=== PATIENT | male | born 1930 | race Caucasian/White ===

== ENCOUNTER 2016-07-23 11:49 | Emergency (ER) | payer MEDICARE ==
[~2016-07-23 11:49] MED LIST: Iopamidol 370 76% 100 ML VIAL ONE; Sodium Chloride 0.9% 100 ML BAG ONE
--- NOTE | 2016-07-23 13:16 | RAD ---
PORTABLE CHEST 1 VIEW: DATE: 07/23/16. TIME: 12:50 p.m. HISTORY: Fall. Chest pain. FINDINGS: Comparison is made with the exam of 12/19/14. The heart size is mildly enlarged. The aorta is tortuous. There is mild Atelectatic change of the right lung base. Small pleural effusions may be present. No pneumothoraces are seen. There is no evidence of kyung pulmonary edema. POS: [facility]
[2016-07-23 13:24] LABS: #Basophils 0.1 thou/uL (0.0-0.2); #Monocytes 1.5 thou/uL (0.11-0.59); %Basophils 0.5 % (0.0-1.0); %Eosinophils 0.1 % (0.0-10.0); %Lymphocytes 6.8 % (21.0-51.0); %Monocytes 10.3 % (0.0-10.0); %Neutrophils 82.4 % (42.0-75.0); Hemoglobin 14.9 g/dL (14.0-18.0); Mean Corpuscular HGB CONC 33.6 g/dL (32.0-36.0); Mean Corpuscular Hemoglobin 33.9 pg (27.0-31.0); Mean Corpuscular Volume 100.8 fl (80.0-94.0); Mean Platelet Volume 6.2 fL (7.4-10.4); Platelet Count 212 thou/uL (130-400); RBC Distribution Width 11.7 % (11.5-14.5); Red Blood Cell (RBC) Count 4.41 mill/uL (4.70-6.10); White Blood Cell (WBC) Count 14.6 thou/uL (4.8-10.8)
[2016-07-23 13:36] LABS: ALT (SGPT) 47 U/L (8-55); AST (SGOT) 37 U/L (5-34); Albumin 3.3 g/dL (3.4-4.8); Alkaline Phosphatase 125 U/L (40-150); Anion Gap 16 mmol/L (10-20); BUN (Urea Nitrogen) 8 mg/dL (8.4-25.7); Bilirubin, Total 1.3 mg/dL (0.2-1.2); Calc. Creatinine Clearance 0 mL/min (70-130); Calcium 9.3 mg/dL (7.8-10.44); Carbon Dioxide 25 mmol/L (23-31); Chloride 101 mmol/L (98-107); Estimated GFR-MDRD Greater than 90; Globulin 3.3 g/dL (2.4-3.5); Glucose 132 mg/dL (83-110); Potassium 3.4 mmol/L (3.5-5.1); Protein, Total 6.6 g/dL (5.8-8.1); Sodium 139 mmol/L (136-145)
--- NOTE | 2016-07-23 13:44 | RAD ---
TWO VIEWS OF THE RIGHT THUMB: DATE: 07/23/16. COMPARISON: None. HISTORY: Fell 2 weeks ago, pain and swelling. FINDINGS: There is severe degenerative change involving the 1st interphalangeal joint and the 1st metacarpal p halangeal joint. Incomplete assessment of the hand indicates prominent degenerative change at the 3 rd metacarpal phalangeal joint as well as the 2nd proximal and distal interphalangeal joints. There is heterotopic bone adjacent to the 1st interphalangeal joint and there is marked joint space narrowing and osteophyte formation in this region. There is no displaced fracture or evidence of dislocation seen. There is chondrocalcinosis in the r egion of the triangular fibrocartilage complex. IMPRESSION: Severe degenerative changes. No displaced fracture or evidence of dislocation is seen. POS: [facility]
[2016-07-23 13:50] LABS: Blood, Urine Negative (Negative); Clarity Clear (Clear); Glucose, Urine (Dipstick) 100 mg/dL (Negative); Leukocyte Negative (Negative); Nitrite Negative (Negative); Protein, Urine (Dipstick) 100 mg/dL (Neg-Trace); Specific Gravity, Urine 1.025 (1.005-1.030)
[2016-07-23 13:53] LABS: Bilirubin Negative (Negative); Icto Negative (Negative)
[2016-07-23 13:56] LABS: Bacteria/HPF Rare-Few HPF (None Seen); RBC/HPF 0-3 HPF (0-3); WBC/HPF 0-3 HPF (0-3)
[2016-07-23 15:47] LABS: CRP (Inflammatory) 18.7 mg/dL (= or < 0.5)
[2016-07-23] MEDS ORDERED: ceFAZolin Sodium 1 GM VIAL ONE (17:02)
--- NOTE | 2016-07-23 18:14 | CT ---
CT OF THE ABDOMEN AND PELVIS WITH IV CONTRAST: Date: 07/23/16 INDICATION: Right upper quadrant abdominal pain. COMPARISON: None. FINDINGS: Motion artifact slightly limits image detail of the upper abdomen. FINDINGS: There is a tiny right pleural effusion with right basilar atelectasis. There is a moderate size hiat al hernia. No focal hepatic lesion is evident. Small calcifications are seen along the capsule of the spleen which may reflect sequelae of prior tr auma. The pancreas and adrenal glands are unremarkable. There is a small cyst within the right mid kidney and lower pole of the left kidney. The small bowel is normal caliber. There is a mild amount of retained stool within the right hemicol on. The bladder is decompressed. The rectum and perirectal soft tissues are unremarkable. No enlarge d lymph nodes or free fluid is evident. There is diffuse osteopenia. There is scattered degenerative and osteoarthritic change. There is pos tsurgical change of right hemilaminectomy at L4-5. There is degenerative dextroscoliosis of the lumbar spine. IMPRESSION: 1. Small right pleural effusion with right basilar atelectasis. 2. Small calcifications seen along the capsule of the spleen may reflect sequelae of prior splenic subcapsular hematoma. No focal splenic lesion is evident. 3. Moderate hiatal hernia. 4. Small renal cyst. 5. Other chronic findings as above. POS: [facility]
== END 2016-07-23 17:30 | disposition home or self-care (01) ==
LOC: MADERS 11:49
DX: L03.011 Cellulitis of right finger (principal); J44.9 Chronic obstructive pulmonary disease, unspecified; Z79.899 Other long term (current) drug therapy; W18.30XA Fall on same level, unspecified, initial encounter
CPT/HCPCS: 71010; 74177; 80053; 81003; 81015; 82150; 83690; 83880; 85025; 86140; 96365; J0690; J7050

== ENCOUNTER 2017-01-05 20:06 | Emergency (ER) | payer MEDICARE ==
--- NOTE | 2017-01-05 21:44 | RAD ---
RIGHT KNEE TWO VIEWS: 01/05/17 HISTORY: Injury, right knee pain. FINDINGS/IMPRESSION: There are postop changes of total knee arthroplasty in good position and alignment. No acute fractur e or dislocation is seen. No periprosthetic lucency is identified to suggest loosening. POS: [facility]
--- NOTE | 2017-01-05 22:06 | RAD ---
AP PELVIS: RIGHT HIP TWO VIEWS: 01/05/17 HISTORY: Injury, right hip pain. FINDINGS/IMPRESSION: There is a comminuted intertrochanteric fracture involving the right femur. There is medial displace ment of the lesser trochanter. POS: [facility]
== END 2017-01-05 22:00 | disposition short-term general hospital (02) ==
LOC: MADERS 20:06
DX: S72.141A Displaced intertrochanteric fracture of right femur, initial encounter for closed fracture (principal); S83.91XA Sprain of unspecified site of right knee, initial encounter; J44.9 Chronic obstructive pulmonary disease, unspecified; M19.90 Unspecified osteoarthritis, unspecified site; W01.0XXA Fall on same level from slipping, tripping and stumbling without subsequent striking against object, initial encounter
CPT/HCPCS: 72170

== ENCOUNTER 2017-01-29 17:52 | Inpatient (IN) | payer MEDICARE ==
[2017-01-29] MEDS ORDERED: Artificial Tear Sol 15 ML BOT EA EYE PRN (21:17)
[2017-01-29] MEDS ORDERED: Famotidine 20 MG TAB PER TUBE SCH (21:30)
[2017-01-30] MEDS: Acetaminophen 325 MG TAB PER TUBE PRN (05:26)
[2017-01-30] MEDS ORDERED: Lantiseptic Ointment 130 GM JAR TOP PRN (06:47)
[2017-01-30] MEDS: Vit A,C & E/Lutein/Minerals Tablet PO SCH (08:16)
[2017-01-30] MEDS: Aspirin 325 MG TAB PER TUBE SCH (08:16)
[2017-01-30] MEDS: Famotidine 20 MG TAB PER TUBE SCH ×2 (08:16→20:33)
[2017-01-30] MEDS: Amoxicillin/Potassium Clav 875 MG TAB PER TUBE SCH ×2 (08:16→20:33)
[2017-01-30] MEDS: Cyanocobalamin (Vitamin B-12) 1,000 MCG TAB PER TUBE SCH (08:16)
[2017-01-30] MEDS: Folic Acid 1 MG TAB PER TUBE SCH (08:16)
[2017-01-30] MEDS: Multivitamin W/ Minerals 1 TAB PER TUBE SCH (08:16)
[2017-01-30] MEDS: Simethicone Chewable 80 MG TAB PO SCH (08:16)
[2017-01-30] MEDS ORDERED: Cyanocobalamin (Vitamin B-12) 1,000 MCG TAB PO SCH (09:00)
--- NOTE | 2017-01-30 16:32 | HP ---
DATE OF ADMISSION: 01/29/2017 ATTENDING: Dr. Corral. PCP: Dr. Nathalie King of [place]. CONSULTANTS: Cardiology, Dr. Christopher Clemons and Dr. Busch; Gastroenterology, Dr. Wes Quijano. REASON FOR ADMISSION: Skilled rehabilitation in [place] swing bed. HISTORY OF PRESENT ILLNESS/HOSPITAL COURSE: Mr. Pozo is an 86-year-old male with multiple past medical history including atrial fibrillation , dementia, hypertension, and chronic dysphagia. Patient had a recent right hip fracture in 12/2016 secondary to fall, wherein he underwent open reduction and internal fixation on 01/08/2017 at [facility]. Patient was sent to [facility] postoperatively for deconditioning, ambulatory training. While at [facility] , he was sent back to [facility] due to concern for dysphagia and aspiration. He underwent modified barium swallow study on 01/20/2017 that showed an evidence of aspiration and penetration. When patient was about to get the PEG tube placement on 01/21/2017, the patient was noted preoperatively to have atrial fibrillation with rapid ventricular rates. Patient was transferred then to emergency room, for which he was treated for the cardiac issue. The patient was placed on sotalol therapy and aspirin after evaluation by the Cardiology Service and EPS service. He was not deemed to be an appropriate candidate for any aggressive intervention with medical therapy including chronic anticoagulation. The patient was placed on aspirin and SCD during his hospital stay. Due to persistent malnutrition and dehydration with increased aspiration risks, the patient was placed on n.p.o. and they proceeded with PEG tube placement, as performed by Dr. Quijano on 01/21/2017. Chest x-ray, during this hospitalization presented with bilateral infiltrates. Thus, patient was started on IV antibiotic for probable aspiration pneumonia. He was then switched to oral antibiotic upon the day of transfer Currently on Augmentin. Ortho zafar, the patient's overall postoperative site is doing well; however, patient remains bed bound. After discussing with the family the plans of care, the patient was thought to be a candidate for inpatient rehab, but was denied this time at [facility] per spouse. For this reason, the patient was transferred to [place] to continue on skilled rehabilitation for strengthening, gait training prior to going back to the home environment. When seen today, the patient was resting comfortably in bed. Spouse was present at bedside. Most of the information were given by the spouse. Per spouse, patient is demented and has limitation because of his poor memory with poor recall. However, his baseline ADLs, he was independent walking without use of assistive device prior to his recent fall that had caused his recent hospitalization in December 2016. Per , they have not been home since and she is not sure if he will be able to make it back home with her as the primary caregiver and her son, who lives with them, as the secondary caregiver, but the goal remains to go back home as much as they can depending on his progress. PAST MEDICAL HISTORY: Atrial fibrillation with variable rate response, on aspirin therapy; history of dementia; history of delirium; hypertension; deconditioning; dysphagia with likely aspiration; history of recurrent falls at home; osteoarthritis; history of prostate hyperplasia; history of skin cancer. PAST SURGICAL HISTORY: 1. Status post right total knee arthroplasty. 2. Status post skin cancer removals. 3. Status post hernia repair. 4. Status post open reduction and internal fixation of the right hip and femur on 01/08/2017. CURRENT MEDICATIONS: Based on transfer list, aspirin 325 mg p.o. daily, B12 1000 mg p.o. daily, multivitamin 1 tab p.o. daily, sotalol 80 mg p.o. b.i.d., Vision Formula one tab daily, Augmentin 875 mg p.o. b.i.d., Artificial Tears b.i.d. p.r.n., famotidine 20 mg per tube daily, folic acid 1 mg per tube daily, DuoNeb every 6 hours p.r.n., and simethicone chewable 80 mg p.o. daily, amiodarone 400 mg p.o. per tube b.i.d. ALLERGIES: No known allergies. FAMILY HISTORY: Positive for coronary artery disease, otherwise noncontributory. SOCIAL HISTORY: Patient resides in [place] with his as the primary caregiver. No alcohol. No tobacco or illicit drug use. REVIEW OF SYSTEMS: Unobtainable secondary to cognitive status, but per spouse and in medical records, there was a reported significant weight loss, general weakness, fatigue, intermittent skin rashes and itching, bladder and bowel incontinence. Denies fever, cough, cold, pain with breathing, chest pain, leg edema, cyanosis, paroxysmal nocturnal dyspnea, dyspnea on exertion, nausea, vomiting, rectal bleeding, dysuria, hematuria, focal paralysis, or paresthesia. Also reports intermittent anxiety, agitation, and confusion. PHYSICAL EXAMINATION: VITAL SIGNS: Blood pressure 115/58, temperature 96.9, pulse 60, respirations 16 , O2 sats 94% at room air, weight 117 pounds and 2 ounces, height 5 feet 4 inches. GENERAL: The patient is asleep, resting comfortably in bed, easily arousable with verbal stimuli. He knows his name and able to recognize and name his . Otherwise, confused, with very limited conversation. Not in acute distress. HEENT: Normocephalic, atraumatic. PERRL. Edentulous. Oral mucosa is moist. NECK: Supple. No LAD. CHEST: Normal excursion, clear to auscultation bilaterally. CARDIAC: Rate controlled. Normal S1 and S2. No murmurs. ABDOMEN: Flat, soft, normoactive bowel sounds. PEG tube is intact. No drainage nor surrounding erythema noted. Nontender abdomen. No rebound, no guarding. Negative CVA tenderness bilaterally. EXTREMITIES: Thin atrophied limbs. No edema. No cyanosis. Pulses 2+ bilaterally. NEUROLOGIC: Nonfocal. DTRs 2+. PSYCHIATRIC: Calm, cooperative, pleasant with evidence of poor memory. ASSESSMENT: 1. Severe deconditioning. 2. Atrial fibrillation with rapid ventricular response, now rate controlled. The patient is not a good candidate for anticoagulation, only on aspirin for antithrombotics. 3. Superficial deep vein thrombosis in the right upper arm. 4. Moderate protein-calorie malnutrition secondary to poor oral intake. 5. Severe dysphagia, status post percutaneous endoscopic gastrostomy tube placement on 01/23/2017. 6. Suspected aspiration pneumonia, treated with IV antibiotic, now on oral antibiotic. 7. Alzheimer dementia, advancing. PLAN: The patient is admitted to [facility] for skilled rehabilitation. PT and OT were consulted. We will continue current medications as modified per list. We will continue percutaneous endoscopic gastrostomy tube feeding. There were some changes made for current enteral feeding as per dietary recommendations secondary to in-availability of Jevity 1.2. See dietitian recommendations for reference. Gastrointestinal prophylaxis with H2 sandra. Deep vein thrombosis prophylaxis with aspirin and sequential compression device. CODE STATUS: The patient has outpatient DNR papers. This was discussed and confirmed by spouse, who was present at the time of examination. Advance care plan discussed with Mrs. Pozo, who serves as the surrogate decision maker for the patient. I had a lengthy discussion with Mrs. Pozo regarding the plan of care. Again, overall prognosis of patient's condition at this point is guarded. It was discussed with spouse that patient's advanced dementia is the main barrier for therapy. We discussed placement over home, but spouse reports that as much as possible they wanted to take the patient home with her and her son as the primary caregivers. The patient will definitely need a home health if this happens. They may also consider getting a private demand generator manager as an additional support. We will get in touch with the family on a regular basis to discuss patient's overall progress. Mrs. Pozo was satisfied with this and agrees to the plan of care. Time spent on advance care plan, greater than 30 minutes. Further recommendations depending on the hospital course and aspiration precautions. MTDD
[2017-01-30] MEDS: Lantiseptic Ointment 130 GM JAR TOP SCH (20:33)
[2017-01-31] MEDS: Cyanocobalamin (Vitamin B-12) 1,000 MCG TAB PER TUBE SCH (08:44)
[2017-01-31] MEDS: Amoxicillin/Potassium Clav 875 MG TAB PER TUBE SCH ×2 (08:44→20:21)
[2017-01-31] MEDS: Aspirin 325 MG TAB PER TUBE SCH (08:44)
[2017-01-31] MEDS: Simethicone Chewable 80 MG TAB PO SCH (08:45)
[2017-01-31] MEDS: Folic Acid 1 MG TAB PER TUBE SCH (08:45)
[2017-01-31] MEDS: Famotidine 20 MG TAB PER TUBE SCH ×2 (08:45→20:21)
[2017-01-31] MEDS: Multivitamin W/ Minerals 1 TAB PER TUBE SCH (08:45)
[2017-01-31] MEDS: Lantiseptic Ointment 130 GM JAR TOP SCH ×2 (08:45→22:24)
[2017-01-31] MEDS: Vit A,C & E/Lutein/Minerals Tablet PO SCH (08:45)
[2017-02-01] MEDS: Amoxicillin/Potassium Clav 875 MG TAB PER TUBE SCH ×2 (08:02→19:44)
[2017-02-01] MEDS: Cyanocobalamin (Vitamin B-12) 1,000 MCG TAB PER TUBE SCH (08:02)
[2017-02-01] MEDS: Aspirin 325 MG TAB PER TUBE SCH (08:02)
[2017-02-01] MEDS: Famotidine 20 MG TAB PER TUBE SCH ×2 (08:02→19:45)
[2017-02-01] MEDS: Lantiseptic Ointment 130 GM JAR TOP SCH ×2 (08:03→19:45)
[2017-02-01] MEDS: Folic Acid 1 MG TAB PER TUBE SCH (08:03)
[2017-02-01] MEDS: Simethicone Chewable 80 MG TAB PO SCH (08:03)
[2017-02-01] MEDS: Multivitamin W/ Minerals 1 TAB PER TUBE SCH (08:03)
[2017-02-01] MEDS: Vit A,C & E/Lutein/Minerals Tablet PO SCH (08:03)
[2017-02-01] MEDS: PYG PO SCH ×2 (17:03→17:04)
[2017-02-01] MEDS: SOD SEL PO SCH ×2 (17:03→17:04)
[2017-02-01] MEDS: SAW PO SCH ×2 (17:03→17:04)
[2017-02-01] MEDS: LYC PO SCH ×2 (17:03→17:04)
[2017-02-01] MEDS: BETA PO SCH ×2 (17:03→17:04)
[2017-02-01] MEDS: VIT E PO SCH ×2 (17:03→17:04)
[2017-02-02] MEDS: Aspirin 325 MG TAB PER TUBE SCH (09:13)
[2017-02-02] MEDS: Folic Acid 1 MG TAB PER TUBE SCH (09:13)
[2017-02-02] MEDS: Multivitamin W/ Minerals 1 TAB PER TUBE SCH (09:13)
[2017-02-02] MEDS: Simethicone Chewable 80 MG TAB PO SCH (09:13)
[2017-02-02] MEDS: Famotidine 20 MG TAB PER TUBE SCH ×2 (09:14→20:19)
[2017-02-02] MEDS: Vit A,C & E/Lutein/Minerals Tablet PO SCH (09:14)
[2017-02-02] MEDS: Amoxicillin/Potassium Clav 875 MG TAB PER TUBE SCH ×2 (09:14→20:19)
[2017-02-02] MEDS: Cyanocobalamin (Vitamin B-12) 1,000 MCG TAB PER TUBE SCH (09:14)
[2017-02-02] MEDS: Lantiseptic Ointment 130 GM JAR TOP SCH ×2 (09:14→20:20)
[2017-02-03 07:31] LABS: ALT (SGPT) 64 U/L (8-55); AST (SGOT) 41 U/L (5-34); Albumin 2.8 g/dL (3.4-4.8); Alkaline Phosphatase 172 U/L (40-150); Anion Gap 12 mmol/L (10-20); BUN (Urea Nitrogen) 22 mg/dL (8.4-25.7); Bilirubin, Total 0.9 mg/dL (0.2-1.2); Calc. Creatinine Clearance 58 mL/min (70-130); Calcium 8.5 mg/dL (7.8-10.44); Carbon Dioxide 28 mmol/L (23-31); Chloride 103 mmol/L (98-107); Estimated GFR-MDRD Greater than 90; Globulin 3.5 g/dL (2.4-3.5); Glucose 125 mg/dL (83-110); Potassium 4.4 mmol/L (3.5-5.1); Protein, Total 6.3 g/dL (5.8-8.1); Sodium 139 mmol/L (136-145)
[2017-02-03 07:43] LABS: #Basophils 0.1 thou/uL (0.0-0.2); #Lymphocytes 0.9 thou/uL (1.20-3.40); #Monocytes 0.7 thou/uL (0.11-0.59); #Neutrophils 9.3 thou/uL (1.40-6.50); %Basophils 1.2 % (0.0-1.0); %Eosinophils 0.4 % (0.0-10.0); %Lymphocytes 8.1 % (21.0-51.0); %Neutrophils 84.3 % (42.0-75.0); Hemoglobin 10.9 g/dL (14.0-18.0); Mean Corpuscular HGB CONC 32.3 g/dL (32.0-36.0); Mean Corpuscular Hemoglobin 34.5 pg (27.0-31.0); Mean Corpuscular Volume 106.6 fl (80.0-94.0); Mean Platelet Volume 5.2 fL (7.4-10.4); Platelet Count 337 thou/uL (130-400); RBC Distribution Width 16.1 % (11.5-14.5); Red Blood Cell (RBC) Count 3.16 mill/uL (4.70-6.10)
[2017-02-03 07:46] LABS: Thyroid Stimulating Hormone 2.6705 uIU/mL (0.35-4.94)
[2017-02-03 08:04] LABS: Anisocytosis SLIGHT = 6-15 cells (100X) (0-5/hpf); Macrocytosis SLIGHT = 6-15 cells (100X) (0-5/hpf); PLT Morphology Comment Appears Adequate
--- NOTE | 2017-02-03 08:32 | RAD ---
PORTABLE CHEST 1 VIEW: DATE: 02/03/17. TIME: 6:19 a.m. HISTORY: Chest pain. FINDINGS/IMPRESSION: Comparison is made with the exam of 01/20/17. The heart size is enlarged. The heart size is enlarged. The aorta is tortuous. No lobar consolidat ion, pneumothorax, kyung pulmonary edema, or large effusions are seen. POS: [facility]
[2017-02-03] MEDS: Cyanocobalamin (Vitamin B-12) 1,000 MCG TAB PER TUBE SCH (08:34)
[2017-02-03] MEDS: Aspirin 325 MG TAB PER TUBE SCH (08:34)
[2017-02-03] MEDS: Famotidine 20 MG TAB PER TUBE SCH ×2 (08:34→20:14)
[2017-02-03] MEDS: Amoxicillin/Potassium Clav 875 MG TAB PER TUBE SCH ×2 (08:34→20:14)
[2017-02-03] MEDS: Folic Acid 1 MG TAB PER TUBE SCH (08:35)
[2017-02-03] MEDS: Vit A,C & E/Lutein/Minerals Tablet PO SCH (08:36)
[2017-02-03] MEDS: Simethicone Chewable 80 MG TAB PO SCH (08:36)
[2017-02-03] MEDS: Lantiseptic Ointment 130 GM JAR TOP SCH ×2 (08:36→20:15)
[2017-02-03] MEDS: Multivitamin W/ Minerals 1 TAB PER TUBE SCH (08:36)
[2017-02-03 11:51] LABS: Iron 49 ug/dL (65-175)
[2017-02-03 12:05] LABS: Ferritin 427.78 ng/mL (22-322)
[2017-02-03 12:24] LABS: Folate (Folic Acid) 14.6 ng/mL (7.0-31.4)
[2017-02-03] MEDS: Acetaminophen 325 MG TAB PER TUBE PRN (13:56)
[2017-02-04] MEDS: Aspirin 325 MG TAB PER TUBE SCH (08:47)
[2017-02-04] MEDS: Cyanocobalamin (Vitamin B-12) 1,000 MCG TAB PER TUBE SCH (08:47)
[2017-02-04] MEDS: Simethicone Chewable 80 MG TAB PO SCH (08:47)
[2017-02-04] MEDS: Folic Acid 1 MG TAB PER TUBE SCH (08:47)
[2017-02-04] MEDS: Vit A,C & E/Lutein/Minerals Tablet PO SCH (08:47)
[2017-02-04] MEDS: Multivitamin W/ Minerals 1 TAB PER TUBE SCH (08:47)
[2017-02-04] MEDS: Amoxicillin/Potassium Clav 875 MG TAB PER TUBE SCH ×2 (08:47→21:04)
[2017-02-04] MEDS: Famotidine 20 MG TAB PER TUBE SCH ×2 (08:48→21:04)
[2017-02-04] MEDS: Lantiseptic Ointment 130 GM JAR TOP SCH ×2 (08:48→21:05)
[2017-02-05] MEDS: Amoxicillin/Potassium Clav 875 MG TAB PER TUBE SCH ×2 (09:06→21:07)
[2017-02-05] MEDS: Simethicone Chewable 80 MG TAB PO SCH (09:06)
[2017-02-05] MEDS: Famotidine 20 MG TAB PER TUBE SCH ×2 (09:06→21:07)
[2017-02-05] MEDS: Multivitamin W/ Minerals 1 TAB PER TUBE SCH (09:06)
[2017-02-05] MEDS: Vit A,C & E/Lutein/Minerals Tablet PO SCH (09:06)
[2017-02-05] MEDS: Aspirin 325 MG TAB PER TUBE SCH (09:06)
[2017-02-05] MEDS: Folic Acid 1 MG TAB PER TUBE SCH (09:07)
[2017-02-05] MEDS: Cyanocobalamin (Vitamin B-12) 1,000 MCG TAB PER TUBE SCH (09:07)
[2017-02-05] MEDS: Lantiseptic Ointment 130 GM JAR TOP SCH ×2 (09:07→21:06)
[2017-02-06] MEDS: Aspirin 325 MG TAB PER TUBE SCH (08:40)
[2017-02-06] MEDS: Amoxicillin/Potassium Clav 875 MG TAB PER TUBE SCH ×2 (08:40→21:04)
[2017-02-06] MEDS: Vit A,C & E/Lutein/Minerals Tablet PO SCH (08:40)
[2017-02-06] MEDS: Cyanocobalamin (Vitamin B-12) 1,000 MCG TAB PER TUBE SCH (08:40)
[2017-02-06] MEDS: Multivitamin W/ Minerals 1 TAB PER TUBE SCH (08:40)
[2017-02-06] MEDS: Famotidine 20 MG TAB PER TUBE SCH ×2 (08:40→21:04)
[2017-02-06] MEDS: Simethicone Chewable 80 MG TAB PO SCH (08:40)
[2017-02-06] MEDS: Acetaminophen 325 MG TAB PER TUBE PRN (08:40)
[2017-02-06] MEDS: Lantiseptic Ointment 130 GM JAR TOP SCH ×2 (08:41→21:06)
[2017-02-06] MEDS: Folic Acid 1 MG TAB PER TUBE SCH (08:41)
[2017-02-07] MEDS: Vit A,C & E/Lutein/Minerals Tablet PO SCH (08:10)
[2017-02-07] MEDS: Multivitamin W/ Minerals 1 TAB PER TUBE SCH (08:10)
[2017-02-07] MEDS: Simethicone Chewable 80 MG TAB PO SCH (08:11)
[2017-02-07] MEDS: Amoxicillin/Potassium Clav 875 MG TAB PER TUBE SCH ×2 (08:11→21:07)
[2017-02-07] MEDS: Cyanocobalamin (Vitamin B-12) 1,000 MCG TAB PER TUBE SCH (08:11)
[2017-02-07] MEDS: Folic Acid 1 MG TAB PER TUBE SCH (08:11)
[2017-02-07] MEDS: Lantiseptic Ointment 130 GM JAR TOP SCH ×2 (08:11→21:07)
[2017-02-07] MEDS: Aspirin 325 MG TAB PER TUBE SCH (08:11)
[2017-02-07] MEDS: Famotidine 20 MG TAB PER TUBE SCH ×2 (08:11→21:07)
[2017-02-07] MEDS: Scopolamine 1.5 mg/72 hour Patch TOP PRN (13:36)
[2017-02-08] MEDS: Multivitamin W/ Minerals 1 TAB PER TUBE SCH (08:09)
[2017-02-08] MEDS: Amoxicillin/Potassium Clav 875 MG TAB PER TUBE SCH ×2 (08:09→21:36)
[2017-02-08] MEDS: Vit A,C & E/Lutein/Minerals Tablet PO SCH (08:09)
[2017-02-08] MEDS: Famotidine 20 MG TAB PER TUBE SCH ×2 (08:09→21:36)
[2017-02-08] MEDS: Aspirin 325 MG TAB PER TUBE SCH (08:09)
[2017-02-08] MEDS: Folic Acid 1 MG TAB PER TUBE SCH (08:10)
[2017-02-08] MEDS: Cyanocobalamin (Vitamin B-12) 1,000 MCG TAB PER TUBE SCH (08:10)
[2017-02-08] MEDS: Simethicone Chewable 80 MG TAB PO SCH (08:10)
[2017-02-08] MEDS: Lantiseptic Ointment 130 GM JAR TOP SCH ×2 (08:34→21:36)
[2017-02-09] MEDS: Acetaminophen 325 MG TAB PER TUBE PRN (02:18)
[2017-02-09] MEDS: Folic Acid 1 MG TAB PER TUBE SCH (08:31)
[2017-02-09] MEDS: Amoxicillin/Potassium Clav 875 MG TAB PER TUBE SCH (08:31)
[2017-02-09] MEDS: Cyanocobalamin (Vitamin B-12) 1,000 MCG TAB PER TUBE SCH (08:31)
[2017-02-09] MEDS: Aspirin 325 MG TAB PER TUBE SCH (08:31)
[2017-02-09] MEDS: Simethicone Chewable 80 MG TAB PO SCH (08:31)
[2017-02-09] MEDS: Famotidine 20 MG TAB PER TUBE SCH ×2 (08:31→20:29)
[2017-02-09] MEDS: Multivitamin W/ Minerals 1 TAB PER TUBE SCH (08:31)
[2017-02-09] MEDS: Vit A,C & E/Lutein/Minerals Tablet PO SCH (08:31)
[2017-02-09] MEDS: Lantiseptic Ointment 130 GM JAR TOP SCH ×2 (08:32→20:30)
[2017-02-10] MEDS: Vit A,C & E/Lutein/Minerals Tablet PO SCH (08:59)
[2017-02-10] MEDS: Aspirin 325 MG TAB PER TUBE SCH (09:00)
[2017-02-10] MEDS: Cyanocobalamin (Vitamin B-12) 1,000 MCG TAB PER TUBE SCH (09:00)
[2017-02-10] MEDS: Simethicone Chewable 80 MG TAB PO SCH (09:00)
[2017-02-10] MEDS: Multivitamin W/ Minerals 1 TAB PER TUBE SCH (09:00)
[2017-02-10] MEDS: Folic Acid 1 MG TAB PER TUBE SCH (09:00)
[2017-02-10] MEDS: Lantiseptic Ointment 130 GM JAR TOP SCH ×2 (09:01→20:23)
[2017-02-10] MEDS: Famotidine 20 MG TAB PER TUBE SCH ×2 (09:01→20:16)
[2017-02-10] MEDS: Scopolamine 1.5 mg/72 hour Patch TOP PRN (10:02)
[2017-02-10] MEDS: Acetaminophen 325 MG TAB PER TUBE PRN (20:16)
[2017-02-11] MEDS: Vit A,C & E/Lutein/Minerals Tablet PO SCH (08:24)
[2017-02-11] MEDS: Cyanocobalamin (Vitamin B-12) 1,000 MCG TAB PER TUBE SCH (08:24)
[2017-02-11] MEDS: Famotidine 20 MG TAB PER TUBE SCH ×2 (08:24→20:22)
[2017-02-11] MEDS: Folic Acid 1 MG TAB PER TUBE SCH (08:24)
[2017-02-11] MEDS: Multivitamin W/ Minerals 1 TAB PER TUBE SCH (08:24)
[2017-02-11] MEDS: Simethicone Chewable 80 MG TAB PO SCH (08:24)
[2017-02-11] MEDS: Aspirin 325 MG TAB PER TUBE SCH (08:24)
[2017-02-11] MEDS: Lantiseptic Ointment 130 GM JAR TOP SCH ×2 (08:25→20:22)
[2017-02-12] MEDS: Cyanocobalamin (Vitamin B-12) 1,000 MCG TAB PER TUBE SCH (09:33)
[2017-02-12] MEDS: Folic Acid 1 MG TAB PER TUBE SCH (09:33)
[2017-02-12] MEDS: Aspirin 325 MG TAB PER TUBE SCH (09:33)
[2017-02-12] MEDS: Famotidine 20 MG TAB PER TUBE SCH ×2 (09:33→19:53)
[2017-02-12] MEDS: Multivitamin W/ Minerals 1 TAB PER TUBE SCH (09:34)
[2017-02-12] MEDS: Simethicone Chewable 80 MG TAB PO SCH (09:34)
[2017-02-12] MEDS: Vit A,C & E/Lutein/Minerals Tablet PO SCH (09:34)
[2017-02-12] MEDS: Lantiseptic Ointment 130 GM JAR TOP SCH ×2 (09:34→19:53)
[2017-02-12] MEDS: Scopolamine 1.5 mg/72 hour Patch TOP PRN (09:36)
[2017-02-13] MEDS: Aspirin 325 MG TAB PER TUBE SCH (08:48)
[2017-02-13] MEDS: Vit A,C & E/Lutein/Minerals Tablet PO SCH (08:48)
[2017-02-13] MEDS: Acetaminophen 325 MG TAB PER TUBE PRN ×2 (08:48→20:09)
[2017-02-13] MEDS: Cyanocobalamin (Vitamin B-12) 1,000 MCG TAB PER TUBE SCH (08:48)
[2017-02-13] MEDS: Simethicone Chewable 80 MG TAB PO SCH (08:49)
[2017-02-13] MEDS: Famotidine 20 MG TAB PER TUBE SCH ×2 (08:49→20:09)
[2017-02-13] MEDS: Folic Acid 1 MG TAB PER TUBE SCH (08:49)
[2017-02-13] MEDS: Multivitamin W/ Minerals 1 TAB PER TUBE SCH (08:49)
[2017-02-13] MEDS: Lantiseptic Ointment 130 GM JAR TOP SCH ×2 (08:50→20:08)
[2017-02-14] MEDS: Vit A,C & E/Lutein/Minerals Tablet PO SCH (08:44)
[2017-02-14] MEDS: Aspirin 325 MG TAB PER TUBE SCH (08:44)
[2017-02-14] MEDS: Famotidine 20 MG TAB PER TUBE SCH ×2 (08:44→20:46)
[2017-02-14] MEDS: Simethicone Chewable 80 MG TAB PO SCH (08:44)
[2017-02-14] MEDS: Cyanocobalamin (Vitamin B-12) 1,000 MCG TAB PER TUBE SCH (08:44)
[2017-02-14] MEDS: Multivitamin W/ Minerals 1 TAB PER TUBE SCH (08:44)
[2017-02-14] MEDS: Folic Acid 1 MG TAB PER TUBE SCH (08:45)
[2017-02-14] MEDS: Lantiseptic Ointment 130 GM JAR TOP SCH ×2 (08:58→20:47)
[2017-02-15] MEDS: Famotidine 20 MG TAB PER TUBE SCH ×2 (08:01→20:49)
[2017-02-15] MEDS: Cyanocobalamin (Vitamin B-12) 1,000 MCG TAB PER TUBE SCH (08:01)
[2017-02-15] MEDS: Aspirin 325 MG TAB PER TUBE SCH (08:01)
[2017-02-15] MEDS: Folic Acid 1 MG TAB PER TUBE SCH (08:01)
[2017-02-15] MEDS: Multivitamin W/ Minerals 1 TAB PER TUBE SCH (08:01)
[2017-02-15] MEDS: Vit A,C & E/Lutein/Minerals Tablet PO SCH (08:02)
[2017-02-15] MEDS: Simethicone Chewable 80 MG TAB PO SCH (08:02)
[2017-02-15] MEDS: Lantiseptic Ointment 130 GM JAR TOP SCH ×2 (17:20→20:49)
[2017-02-16] MEDS: Famotidine 20 MG TAB PER TUBE SCH ×2 (08:15→20:33)
[2017-02-16] MEDS: Folic Acid 1 MG TAB PER TUBE SCH (08:15)
[2017-02-16] MEDS: Simethicone Chewable 80 MG TAB PO SCH (08:15)
[2017-02-16] MEDS: Cyanocobalamin (Vitamin B-12) 1,000 MCG TAB PER TUBE SCH (08:15)
[2017-02-16] MEDS: Multivitamin W/ Minerals 1 TAB PER TUBE SCH (08:15)
[2017-02-16] MEDS: Aspirin 325 MG TAB PER TUBE SCH (08:16)
[2017-02-16] MEDS: Lantiseptic Ointment 130 GM JAR TOP SCH ×2 (08:16→20:33)
[2017-02-16] MEDS: Vit A,C & E/Lutein/Minerals Tablet PO SCH (08:16)
[2017-02-16] MEDS: ALPRAZolam 0.25 MG TAB PER TUBE PRN (22:29)
[2017-02-17] MEDS: Multivitamin W/ Minerals 1 TAB PER TUBE SCH (08:53)
[2017-02-17] MEDS: Simethicone Chewable 80 MG TAB PO SCH (08:53)
[2017-02-17] MEDS: Famotidine 20 MG TAB PER TUBE SCH ×2 (08:53→20:19)
[2017-02-17] MEDS: Aspirin 325 MG TAB PER TUBE SCH (08:53)
[2017-02-17] MEDS: Folic Acid 1 MG TAB PER TUBE SCH (08:54)
[2017-02-17] MEDS: Cyanocobalamin (Vitamin B-12) 1,000 MCG TAB PER TUBE SCH (08:54)
[2017-02-17] MEDS: Lantiseptic Ointment 130 GM JAR TOP SCH (08:54)
[2017-02-17] MEDS: Vit A,C & E/Lutein/Minerals Tablet PO SCH (08:54)
[2017-02-17] MEDS: Scopolamine 1.5 mg/72 hour Patch TOP PRN (09:20)
[2017-02-17] MEDS: ALPRAZolam 0.25 MG TAB PER TUBE PRN (17:49)
[2017-02-17] MEDS: Acetaminophen 325 MG TAB PER TUBE PRN (20:20)
[2017-02-18] MEDS: Lantiseptic Ointment 130 GM JAR TOP SCH ×2 (00:18→08:43)
[2017-02-18 08:29] VITALS: BP 125/61; TEMP 95.9
[2017-02-18] MEDS: Aspirin 325 MG TAB PER TUBE SCH (08:42)
[2017-02-18] MEDS: Simethicone Chewable 80 MG TAB PO SCH (08:42)
[2017-02-18] MEDS: Famotidine 20 MG TAB PER TUBE SCH (08:42)
[2017-02-18] MEDS: Multivitamin W/ Minerals 1 TAB PER TUBE SCH (08:42)
[2017-02-18] MEDS: Vit A,C & E/Lutein/Minerals Tablet PO SCH (08:42)
[2017-02-18] MEDS: Folic Acid 1 MG TAB PER TUBE SCH (08:42)
[2017-02-18] MEDS: Cyanocobalamin (Vitamin B-12) 1,000 MCG TAB PER TUBE SCH (08:43)
[2017-02-18 12:29] VITALS: BMI 18.7
[2017-02-18] MEDS: ALPRAZolam 0.25 MG TAB PER TUBE PRN (12:39)
[2017-02-18 14:29] LABS: Bilirubin Negative (Negative); Blood, Urine Negative (Negative); Clarity Slightly Cloudy (Clear); Glucose, Urine (Dipstick) Negative (Negative); Leukocyte Negative (Negative); Nitrite Negative (Negative); Protein, Urine (Dipstick) 30 mg/dL (Neg-Trace); Specific Gravity, Urine 1.015 (1.005-1.030); pH, Urine 8.5 (5.0-9.0)
[2017-02-18 14:42] LABS: RBC/HPF 0-3 HPF (0-3); WBC/HPF 0-3 HPF (0-3)
[2017-02-18 14:43] LABS: Bacteria/HPF Rare-Few HPF (None Seen)
--- NOTE | 2017-02-19 11:09 | DIS ---
ATTENDING: Dr. Corral PRIMARY CARE PHYSICIAN: Dr. Nathalie King DATE OF DISCHARGE: 02/18/2017 CONSULTANTS: 1. [facility] Supervisor, Dr. Julio Cesar Clemons and Dr. Busch. 2. Rental Car Deliverer, Dr. Harvey Case REASON FOR ADMISSION: Skilled rehabilitation in [facility] bed. CONDITION ON DISCHARGE: Guarded. DISPOSITION: [facility] for palliative care with Hospice. FINAL DIAGNOSES: 1. Alzheimer's dementia, late onset. 2. Dementia with behavioral disturbances. 3. Severe dysphagia, status post PEG tube placement, currently on PEG tube feeding. 4. Paroxysmal atrial fibrillation, rate controlled. 5. Moderate protein calorie malnutrition secondary to poor oral intake. 6. History of suspected aspiration pneumonia, treated. 7. History of superficial deep vein thrombosis in the right arm. Patient is not a good candidate for anticoagulation secondary to advanced dementia, unsteady gait an increased risk of fall. Currently on aspirin for antithrombotic only. 8. Status post left hip fracture secondary to fall, status post repair in 2016, incomplete healing per latest x-ray by Ortho on 02/16/2017. 9. Abnormality of gait and imbalance. 10. Severe deconditioning/debility. CURRENT MEDICATIONS: Amiodarone 200 mg per tube b.i.d., aspirin 325 mg per tube daily, sotalol 80 mg per tube b.i.d. Artificial Tears b.i.d. p.r.n., famotidine 20 mg per tube daily and DuoNeb q.6. p.r.n. Xanax 0.25 mg t.i.d. p.r.n., Bisacodyl 10 mg MO daily p.r.n., simethicone 80 mg per tube daily p.r.n. DISCHARGE INSTRUCTIONS: 1. Transferred to [facility] for palliative care with hospice. 2. Diet, n.p.o., PEG tube feeding with Jevity 1.55 mL per hour and H2O flush 30 mL q.4h. 3. Activity: Complete bed rest, needs assistance with transfers all the time. Fall precautions and safety prevention. 4. Aspiration precautions to keep heads up at 40 degrees and above. CODE STATUS: DNR. HISTORY OF PRESENT ILLNESS AND HOSPITAL COURSE: Mr. Pozo is an 86-year-old male with significant history of advanced dementia, hypertension, chronic dysphagia and paroxysmal atrial fibrillation. He had a recent right hip fracture in 12/2016 secondary to fall at home where he underwent open reduction and internal fixation on 01/08/2017 at [facility]. The patient was initially sent to [facility] postoperatively for deconditioning and ambulatory training. During his rehab at that time he was sent back to [facility] due to concern for CVA, dysphagia and aspiration. He underwent modified barium swallow study on 01/20/2017 that showed an evidence of aspiration and penetration. The patient was scheduled for PEG tube placement on 01/21/2017. The patient preoperatively was noted to have atrial fibrillation with rapid ventricular rate. He was referred to Cardio Service and EPS Service. He was deemed not a good candidate for any aggressive intervention with medical therapy including chronic anticoagulation secondary to overall medical condition, advanced dementia and history of falls. The patient was placed on aspirin and SCD instead. Due to his persistent malnutrition and dehydration with increased aspiration risk, the patient was placed on n.p.o. and they proceeded with PEG tube placement as performed by Dr. Quijano on 01/21/2017. Chest x-ray at that time presented with bilateral infiltrates. The patient was started on empiric IV antibiotic therapy for probable aspiration pneumonia and subsequently switched to oral antibiotic on the day of transfer to [facility]. Augmentin course was completed while in skilled rehab. Skilled rehab stay in [place] was not successful. The patient was noted to be more confused with intermittent agitation and anxiety. There was a significant decline in overall functional status and cognitive status secondary to increased behavioral disturbances in the form of sundowning. The patient requires short-acting anxiolytic every now and then secondary to anxiety and agitation. He continued to lose more weight despite the continuous PEG tube infusion pump with Jevity with adjusted caloric intake. The patient remained very unsteady with his gait and could not follow commands and instructions from the therapist. After several discussions and meetings with the family as represented by his and his son, Fabio Pozo, who acts as the surrogate decision makers for the patient, it was decided that the family could not take care of the patient at home secondary to higher level of care. There was also a discussion regarding palliative care with hospice secondary to declining overall status and advancing dementia and confusion and multiple complications as mentioned above. On 02/17/2017 the patient's insurance disapproved further skilled rehab due to max potential was met. The family then decided to transfer the patient to [facility] under hospice care with [facility]. On 02/18/2017 the patient was discharged with poor and guarded prognosis. The family is well aware of the patient's poor clinical condition. The family confirmed DNR status and they are comfortable with comfort/palliative care only in the [facility]. Vital signs prior to discharge; temperature 97, pulse 76, respirations 16, O2 sats 95-96%, blood pressure 125/61, weight 109 pounds and 3 ounces, height 5 feet 4. LABORATORY DATA: On 02/18/2017 urine protein 30, WBC 0-3, RBC 0-3. Nitrite negative. Chest x-ray on 02/03/2017; the heart size is enlarged, the aorta is tortuous. No lobar consolidation, pneumothorax, kyung pulmonary edema or large effusions seen, the heart size is enlarged. Time spent on this discharge, 35 minutes in examining the patient and coordination of care. WILLIAM
== END 2017-02-18 17:00 | disposition hospice, inpatient (51) | DRG 560 ==
LOC: MADMS 18:59
PROVIDERS: ADMIT Family Medicine; ATTEND Family Medicine
DX: Z47.89 Encounter for other orthopedic aftercare (principal); E44.0 Moderate protein-calorie malnutrition; I82.621 Acute embolism and thrombosis of deep veins of right upper extremity; G30.1 Alzheimer's disease with late onset; F02.81 Dementia in other diseases classified elsewhere, unspecified severity, with behavioral disturbance; Z93.1 Gastrostomy status; I48.0 Paroxysmal atrial fibrillation; R13.12 Dysphagia, oropharyngeal phase; I10 Essential (primary) hypertension; Z68.1 Body mass index [BMI] 19.9 or less, adult; R53.81 Other malaise; Z91.81 History of falling; M19.90 Unspecified osteoarthritis, unspecified site; N40.0 Benign prostatic hyperplasia without lower urinary tract symptoms; Z85.828 Personal history of other malignant neoplasm of skin; Z79.82 Long term (current) use of aspirin; Z66 Do not resuscitate; R26.81 Unsteadiness on feet
CPT/HCPCS: 36415; 71010; 80053; 81001; 82607; 82728; 82746; 83540; 84443; 85025; 87086; G8996-GN-CN; G8997-GN-CN; G8998-GN-CN